=== PATIENT | female | born 1955 | race Caucasian/White ===

== ENCOUNTER 2017-03-13 12:18 | Day surgery (SDC) | payer MEDICARE, MEDICAID ==
[~2017-03-13] VITALS: Ht 160 cm; Wt 75.7 kg
[~2017-03-13 12:18] MED LIST: AMLO10TA2 PO; ATEN25TA OR; ATEN50TA2 PO; ATOR1TAB21 PO; CINA30TA PO; DEPA500T2 OR; DIVA500T9 PO; FERR1TAB8 PO; INSUDET SC; LITH300T2 OR; METF500T4 OR; NICO21DI4 TD; RANI1TAB6 PO; RENATAB5 PO; RENV2TAB PO; TOUJ1.2I SC; VITA100067 PO; VITA1CAP40 PO
[2017-03-13] MEDS ORDERED: LIDOCAINE 2% INJ 100 MG/5 ML SDV (FOR ANES.) As Ordered ONE (12:40)
[2017-03-13] MEDS ORDERED: PROPOFOL 200 MG/20 ML VIAL As Ordered ONE (12:40)
[2017-03-13] MEDS: LR 1,000 ML IV SCH ×2 (13:20→13:21)
--- NOTE | 2017-03-13 15:01 | ROOR ---
Patient Name: Mai Espino Procedure Date: 03/13/2017 2:06 PM Date of : 1955 Age: 61 Room: [facility] Gender: Female Note Status: Finalized Procedure: Colonoscopy Indications: Screening for colorectal malignant neoplasm, This is the patient's first colonoscopy Providers: Haim Dupont MD Referring MD: Geneva Javed DO Requesting Provider: Medicines: Monitored Anesthesia Care Complications: No immediate complications. Procedure: Pre-Anesthesia Assessment: - Prior to the procedure, a History and Physical was performed, and patient medications and allergies were reviewed. The patient is competent. The risks and benefits of the procedure and the sedation options and risks were discussed with the patient. All questions were answered and informed consent was obtained. Patient identification and proposed procedure were verified by the physician, the nurse and the anesthesiologist in the procedure room. Mental Status Examination: alert and oriented. Airway Examination: normal oropharyngeal airway and neck mobility. CV Examination: regular rate and rhythm. Prophylactic Antibiotics: The patient does not require prophylactic antibiotics. Prior Anticoagulants: The patient has taken no previous anticoagulant or antiplatelet agents. ASA Grade Assessment: III - A patient with severe systemic disease. After reviewing the risks and benefits, the patient was deemed in satisfactory condition to undergo the procedure. The anesthesia plan was to use monitored anesthesia care (MAC). Immediately prior to administration of medications, the patient was re-assessed for adequacy to receive sedatives. The heart rate, respiratory rate, oxygen saturations, blood pressure, adequacy of pulmonary ventilation, and response to care were monitored throughout the procedure. The physical status of the patient was re-assessed after the procedure. The Colonoscope was introduced through the anus and advanced to the cecum, identified by appendiceal orifice and ileocecal valve. The colonoscopy was performed without difficulty. The patient tolerated the procedure well. The quality of the bowel preparation was good. Findings: The perianal and digital rectal examinations were normal. A 10 mm polyp was found in the proximal ascending colon. The polyp was multi-lobulated and sessile. The polyp was removed with a hot snare. Resection and retrieval were complete. A 5 mm polyp was found in the transverse colon. The polyp was sessile. The polyp was removed with a hot snare. Resection and retrieval were complete. A 5 mm polyp was found at 40 cm proximal to the anus. The polyp was sessile. The polyp was removed with a hot snare. Polyp resection was incomplete, and the resected tissue was not retrieved. The appearance was consistent with a hyperplastic polyp. There were multiple small polyps consistent with hyperplastic polyps noted in the rectum. Impression: - One 10 mm polyp in the proximal ascending colon, removed with a hot snare. Resected and retrieved. - One 5 mm polyp in the transverse colon, removed with a hot snare. Resected and retrieved. - One 5 mm polyp at 40 cm proximal to the anus, removed with a hot snare. Incomplete resection. Resected tissue not retrieved. Recommendation: - Await pathology results. - Discharge patient to home. - Resume previous diet. - Continue present medications. - Telephone endoscopist for pathology results in 1 week. Haim Dupont MD 03/13/2017 3:00:45 PM Number of Addenda: 0 Note Initiated On: 03/13/2017 2:06 PM Estimated Blood Loss: Estimated blood loss: none.
[2017-03-13 15:03] VITALS: BP 187/78
== END 2017-03-13 15:15 | disposition home or self-care (01) ==
LOC: M OPP 12:18
PROVIDERS: ATTEND Surgery
DX: Z12.11 Encounter for screening for malignant neoplasm of colon (principal); D12.2 Benign neoplasm of ascending colon; D12.3 Benign neoplasm of transverse colon; D12.5 Benign neoplasm of sigmoid colon; K62.1 Rectal polyp; I10 Essential (primary) hypertension; E78.5 Hyperlipidemia, unspecified; E11.9 Type 2 diabetes mellitus without complications; R12 Heartburn; K21.9 Gastro-esophageal reflux disease without esophagitis; M54.9 Dorsalgia, unspecified; F31.9 Bipolar disorder, unspecified; Z78.0 Asymptomatic menopausal state; F17.210 Nicotine dependence, cigarettes, uncomplicated; Z99.2 Dependence on renal dialysis; Z79.899 Other long term (current) drug therapy

== ENCOUNTER → 2017-04-20 | Outpatient (REF) | payer MEDICARE, MEDICAID | LOC: M LAB REF 16:25 | DX: Z01.419 Encounter for gynecological examination (general) (routine) without abnormal findings (principal); N95.2 Postmenopausal atrophic vaginitis | CPT/HCPCS: G0123 ==

== ENCOUNTER 2018-06-12 07:13 | Outpatient (CLI) | payer MEDICARE, MEDICAID ==
[~2018-06-12] VITALS: Ht 160 cm; Wt 75.8 kg
[~2018-06-12 07:13] MED LIST changes: -AMLO10TA2 PO; +AMLO10TA5 PO; -VITA1CAP40 PO; +VITA50005 PO
[2018-06-12 07:42] VITALS: BP 182/76
[2018-06-12] MEDS ORDERED: [UNRECOGNIZED DRUG - CODE] PO (07:52)
[2018-06-12] MEDS ORDERED: MYCO250C PO (07:52)
[2018-06-12] MEDS ORDERED: PRED10PA PO (07:53)
[2018-06-12] MEDS ORDERED: ASPI1TAB PO (07:57)
[2018-06-12] MEDS ORDERED: NIFE20CA PO (07:57)
[2018-06-12] MEDS ORDERED: STOO100C PO (07:58)
[2018-06-12] MEDS ORDERED: SODI650T PO (07:59)
[2018-06-12] MEDS ORDERED: BELATACEPT IV ONE (08:00)
[2018-06-12] MEDS ORDERED: FILTER 1.2 MICRON (ADULT TPN/MANNITOL/REMICADE) XX ONE (08:00)
[2018-06-12] MEDS ORDERED: NS IV ONE (08:00)
[2018-06-12] MEDS ORDERED: TRES100I SC (08:00)
[2018-06-12] MEDS ORDERED: MAGN400C PO (08:01)
[2018-06-12] MEDS ORDERED: FILG30VL SC (08:01)
[2018-06-12] MEDS ORDERED: NULO250I IV (08:02)
[2018-06-12 08:32] VITALS: BP 162/74
[2018-06-12 08:58] VITALS: BP 176/80
== END 2018-06-12 09:00 | disposition home or self-care (01) ==
LOC: M INFU 07:13
PROVIDERS: ATTEND Internal Medicine Nephrology
DX: Z94.0 Kidney transplant status (principal)
CPT/HCPCS: 96365; J0485

== ENCOUNTER 2018-06-26 11:14 | Outpatient (CLI) | payer MEDICARE, MEDICAID ==
[~2018-06-26] VITALS: Ht 160 cm; Wt 75.8 kg
[~2018-06-26 11:14] MED LIST changes: +ASPI1TAB PO; +FILG30VL SC; +MAGN400C PO; +MYCO250C PO; +NIFE20CA PO; +NULO250I IV; +PRED10PA PO; +SODI650T PO; +STOO100C PO; +TRES100I SC; +[UNRECOGNIZED DRUG - CODE] PO
[2018-06-26 11:25] VITALS: BP 131/60
[2018-06-26] MEDS ORDERED: BELATACEPT IV ONE (11:30)
[2018-06-26] MEDS ORDERED: NS IV ONE (11:30)
[2018-06-26] MEDS ORDERED: FILTER 1.2 MICRON (ADULT TPN/MANNITOL/REMICADE) XX ONE (11:30)
[2018-06-26] MEDS ORDERED: AMLO5TAB6 PO (12:16)
[2018-06-26] MEDS ORDERED: ACET-683 PO (12:23)
[2018-06-26 12:50] VITALS: BP 147/67
== END 2018-06-26 12:50 | disposition home or self-care (01) ==
LOC: M INFU 11:14
PROVIDERS: ATTEND Internal Medicine Nephrology
DX: Z94.0 Kidney transplant status (principal)
CPT/HCPCS: 96365; J0485